=== PATIENT | male | born 1940 | race Caucasian/White ===

== ENCOUNTER 2016-09-13 08:52 | Emergency (ER) | payer MEDICARE, BC ==
[2016-09-13] MEDS ORDERED: HYDROmorphone 1 MG/ML 1 ML SYRINGE IM STA (09:22)
[2016-09-13] MEDS ORDERED: ORPHENADRINE 30 MG/ML 2 ML VIAL IM STA (09:22)
--- NOTE | 2016-09-13 09:38 | ED ---
Lower Extremity Injury HPI - General Chief Complaint: Extremity Injury, Lower Stated Complaint: Back Pain Time Seen by Provider: 09/13/16 09:16 Source: patient, EMS, RN notes reviewed Mode of arrival: EMS Limitations: no limitations - History of Present Illness Initial Comments: 76-year-old male presents emergency Department with chief complaint of right hip , leg pain. Patient states this is ongoing since last March. Patient states he seen his physician multiple times and has had x-rays. Patient states that they discontinue given pain meds states is not helping. Patient states that he takes Vicoprofen. Patient denies any bowel bladder incontinence or retention. Denies any saddle anesthesias or lower extremity paresthesias. Patient states it started after riding on his riding lawn more. Patient states she has no abdominal pain including nausea, vomiting diarrhea constipation. Patient states he took pain pills morning with no relief and states that it felt worse so he called EMS. Patient does have prior history of liver transplant in which she is monitored weekly by Adelfo Loyd. Patient states that every has been normal after his hospital stay one month ago. - Related Data Home Medications Medication Instructions Recorded Confirmed Atorvastatin [Lipitor] 20 mg PO DAILY 09/13/16 09/13/16 HYDROcodone/IBUPROFEN 7.5-200 1 tab PO Q8H PRN 09/13/16 09/13/16 [Vicoprofen 7.5-200 mg] Lisinopril [Zestril] 20 mg PO DAILY 09/13/16 09/13/16 Mycophenolate Mofetil [Cellcept] 250 mg PO BID 09/13/16 09/13/16 Tacrolimus [Prograf] 0.5 mg PO BID 09/13/16 09/13/16 Ursodiol [Actigall] 300 mg PO BID 09/13/16 09/13/16 amLODIPine [Norvasc] 5 mg PO DAILY 09/13/16 09/13/16 glyBURIDE [Diabeta] 10 mg PO AC-BRKFST 09/13/16 09/13/16 Previous Rx's Medication Instructions Recorded Diazepam [Valium] 5 mg PO BID #14 tab 09/13/16 Allergies Allergy/AdvReac Type Severity Reaction Status Date / Time acetaminophen [From Tylenol] AdvReac LIVER Verified 09/13/16 09:35 TRANSPLANT Review of Systems ROS Statement: Those systems with pertinent positive or pertinent negative responses have been documented in the HPI. ROS Other: All systems not noted in ROS Statement are negative. Past Medical History Past Medical History: Diabetes Mellitus, Hypertension History of Any Multi-Drug Resistant Organisms: None Reported Past Surgical History: Hernia Repair Additional Past Surgical History / Comment(s): liver transplant Past Psychological History: No Psychological Hx Reported Smoking Status: Former smoker Past Alcohol Use History: None Reported Past Drug Use History: None Reported General Exam Limitations: no limitations General appearance: alert, in no apparent distress Head exam: Present: atraumatic, normocephalic, normal inspection Eye exam: Present: normal appearance, PERRL, EOMI. Absent: scleral icterus, conjunctival injection, periorbital swelling Respiratory exam: Present: normal lung sounds bilaterally. Absent: respiratory distress, wheezes, rales, rhonchi, stridor Cardiovascular Exam: Present: regular rate, normal rhythm, normal heart sounds. Absent: systolic murmur, diastolic murmur, rubs, gallop, clicks GI/Abdominal exam: Present: soft, distended, normal bowel sounds. Absent: tenderness, guarding, rebound, rigid Back exam: Present: full ROM, other (Normal straight leg raise). Absent: tenderness, CVA tenderness (R), CVA tenderness (L), paraspinal tenderness, vertebral tenderness Neurological exam: Present: alert, oriented X3, CN II-XII intact Skin exam: Present: warm, dry, intact, normal color. Absent: rash Course Vital Signs 09/13/16 09:04 Temperature 97.3 F L Pulse Rate 83 Respiratory 18 Rate Blood Pressure 114/59 O2 Sat by Pulse 95 Oximetry Medical Decision Making - Medical Decision Making 76-year-old male presented for low back pain. Patient has disc bulging noted at L2-L3. Patient's pain is consistent with nerve impingement at that level. Patient will be discharged at this time with follow-up with Dr. Cummings. Return parameters were discussed for 5 symptoms were discussed. 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 Prescriptions: Diazepam [Valium] 5 mg PO BID #14 tab Referrals: Ronny Noriega MD [Primary Care Provider] - 1-2 days Rolly Acosta DO [Doctor of Osteopathic Medicine] - 1-2 days Time of Disposition: 10:19
--- NOTE | 2016-09-13 10:06 | CT ---
EXAMINATION TYPE: CT lumbar spine wo con DATE OF EXAM: 09/13/2016 9:55 AM COMPARISON: NONE HISTORY: Pain at Rt hip to knee CT DLP: 1239 mGycm CONTRAST: None TECHNIQUE: CT of the lumbar spine is performed on a spiral scan at 3 mm thick sections. Reconstructed images are performed in the coronal and sagittal planes. FINDINGS: Spondylosis is present. T12-L1: No focal disc herniation or significant disc bulge is evident. No spinal canal stenosis or neural foraminal stenosis is present L1-L2: Minimal vacuum disc phenomenon is present anteriorly and superiorly within the disc space. No significant disc bulge is evident. Mild facet hypertrophy is present. Neural foramen are patent. L2-L3: Broad-based disc bulge is present with moderate anterior thecal sac compression. No AP spinal canal stenosis is present. Vacuum disc phenomenon is present. Moderate bilateral foraminal stenosis a ppears to be present, greater on the right. Facet hypertrophy is present. L3-L4: Disc space narrowing is present. Mild disc bulge may be present. Facet hypertrophy is present on the right. Mild foraminal narrowing is present on the right. L4-L5: Endplate spurring is present. There is mild associated disc material with mild anterior thecal sac flattening. No AP spinal canal stenosis is present. Neural foramen is some mild narrowing on the right. L5-S1: No focal disc herniation or significant disc bulge is evident. No spinal canal stenosis or n eural foraminal stenosis is present Scoliosis is present with a convexity to the left centered at approximately L2. IMPRESSION: 1. Multilevel degenerative disc changes and scoliosis. 2. Mild foraminal narrowing greater on the right discussed above. This appears greatest at the L2-L3 level. 3. Multilevel disc bulging, greatest at L2-L3. 4. Scoliosis. 5. No acute osseous abnormality.
[2016-09-13 10:55] VITALS: BP 110/97; PULSE 84; RESP 20; TEMP 97
== END 2016-09-13 10:55 | disposition home or self-care (01) ==
LOC: EC 08:52
DX: M51.16 Intervertebral disc disorders with radiculopathy, lumbar region (principal); M25.551 Pain in right hip; M79.606 Pain in leg, unspecified; E11.9 Type 2 diabetes mellitus without complications; I10 Essential (primary) hypertension; Z87.891 Personal history of nicotine dependence; Z79.899 Other long term (current) drug therapy; Z88.6 Allergy status to analgesic agent
CPT/HCPCS: 99284; 96372 ×2; 72131; J2360; J1170